=== PATIENT | female | born 1975 | race Caucasian/White ===

== ENCOUNTER 2017-11-15 10:55 | Outpatient (CLI) | payer BC ==
--- NOTE | 2017-11-21 09:16 | MMO ---
BILATERAL SCREENING MAMMOGRAM: DATE: 11/15/17 HISTORY: 42-year-old female for screening mammography. COMPARISON: 04/26/13. FINDINGS: Bilateral MLO and CC views of the breasts show extremely dense breast parenchyma, which may obscure l esions on mammography. There is no evidence of suspicious mass, suspicious cluster of microcalcificat ions, or area of architectural distortion. Interpretation of this mammogram was performed with the assistance of computer-aided detection. IMPRESSION: BIRADS 1: Negative Annual screening mammography is recommended. POS: [facility]
== END 2017-11-15 10:56 | disposition home or self-care (01) ==
LOC: SCSMAMMO 10:55
PROVIDERS: ATTEND Family Medicine
DX: Z12.31 Encounter for screening mammogram for malignant neoplasm of breast (principal)
CPT/HCPCS: 77067